=== PATIENT | female | born 1955 | race Caucasian/White ===

== ENCOUNTER 2016-07-10 19:21 | Inpatient (IN) | payer BC ==
[~2016-07-10] VITALS: Ht 154.9 cm; Wt 92.1 kg
[2016-07-10 20:29] LABS: BASO # 0.1 x10^3/uL (0.0-0.2); BASO % 1 % (0-3); EOS % 4 % (0-3); HEMATOCRIT 40.4 % (36.0-47.0); HEMOGLOBIN 13.7 g/dL (12.0-15.5); LYMPH # 2.1 x10^3/uL (1.0-4.8); LYMPH % 27 % (24-48); MEAN CORPUSCULAR HEMOGLOBIN 32 pg (25-35); MEAN CORPUSCULAR HGB CONC 34 g/dL (31-37); MEAN CORPUSCULAR VOLUME 93 fL (79-100); MONO % 5 % (0-9); NEUT % 64 % (31-73); PLATELET COUNT 309 x10^3/uL (140-400); RED BLOOD COUNT 4.34 x10^6/uL (3.50-5.40); RED CELL DISTRIBUTION WIDTH 12.7 % (11.5-14.5); WHITE BLOOD COUNT 7.8 x10^3/uL (4.0-11.0)
[2016-07-10 20:42] LABS: BILIRUBIN,URINE NEGATIVE (NEG); GLUCOSE,URINE NEGATIVE (NEG); NITRITE,URINE NEGATIVE (NEG); PROTEIN,URINE 30 mg/dL (NEG-TRACE); UROBILINOGEN,URINE 0.2 mg/dL (0.2 mg/dL)
[2016-07-10 20:44] LABS: CALCIUM 8.6 mg/dL (8.5-10.1); POTASSIUM 3.5 mmol/L (3.5-5.1)
[2016-07-10 20:53] LABS: RBC,URINE 0 /HPF (0-2)
[2016-07-10 20:54] LABS: BACTERIA,URINE FEW /HPF (0-FEW); SQUAMOUS EPITHELIAL CELL,UR FEW /LPF
--- NOTE | 2016-07-10 21:04 | RAD ---
PROCEDURE Head CT without contrast. HISTORY Seizure-like activity. TECHNIQUE Computed tomographic images the head were obtained without contrast. One or more of the following individualized dose reduction techniques were utilized for this examination: 1. Automated exposure control; 2. Adjustment of the mA and/or kV according to patient size; 3. Use of iterative reconstruction technique. COMPARISON None. FINDINGS No hemorrhage is seen. There is no mass effect or midline shift. There is no hydrocephalus. The weldon and white matter differentiation pattern is intact. The orbits and visualized paranasal sinuses are unremarkable. There are right mastoidectomy changes. 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 IMPRESSION No acute intracranial finding. Electronically signed by: Bhavana Domínguez (Jul 10, 2016 21:03:05)
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
[2016-07-10] MEDS ORDERED: ACETAMINOPHEN 325 MG TABLET. PO PRN (22:45)
[2016-07-10] MEDS ORDERED: ONDANSETRON PF 4 MG/2 ML VIAL. IV PRN (22:45)
[2016-07-10] MEDS ORDERED: fentaNYL PF VIAL 100 MCG/2 ML VIAL IV PRN (22:45)
--- NOTE | 2016-07-10 23:27 | ACF ---
Admit Criteria Forms Admit Criteria Forms Admit Criteria Forms SEIZURE Clinical Indications for Admission to Inpatient Care (Place 'X' for any and all applicable criteria): Admission is indicated for seizure and ANY ONE of the following(1)(2)(3)(4)(5): [X ]I. Inpatient admission required rather than observation care (Also use Seizure: Observation Care Criteria as appropriate) because of ANY ONE of the following: [ ]a) Altered mental status that is severe or persistent [ ]b) New focal neurologic deficit that is severe or persistent [ ]c) Metabolic disorder (eg, hypoglycemia, hyponatremia) that is severe or persistent [ ]d) Recurrent seizure [ ]e) Outpatient antiseizure regimen cannot be established (eg , patient cannot tolerate medication, initiation requires inpatient care) [ ]f) Need for ongoing intravenous infusion of antiseizure medication [ ]g) Cardiac arrhythmias of immediate concern [ ]h) Cerebral bleeding, hydrocephalus, or vasospasm monitoring (14) [ ]i) Increased intracranial pressure or cerebral edema monitoring (15) [X ]j) Other treatment or monitoring requiring inpatient admission [ ]II. Status epilepticus [A] or repetitive seizures not controlled with emergent treatment (6)(8) [ ]III. Brain disorder (eg, tumor, edema, and hydrocephalus) that requiring monitoring or intervention available only at inpatient level of care. [ ]IV. Brain insult (eg, severe trauma, stroke, drug toxicity, or withdrawal) that requires monitoring or intervention available only at inpatient level of care (10)(11) Extended stay beyond goal length of stay may be needed for (22) [ ]a) Complications of status epilepticus [ ]b) Refractory status epilepticus [ ]c) Etiology-specific therapy for conditions such as CAPTAIN/CHECK AIRMAN infection, head injury,eclampsia, severe metabolic abnormalities, and brain tumor [ ]d) Residual neurologic damage, [ ]e) Initiation of significant change to anticonvulsant treatment [ ]f) Older patients (65 years or older) [ ]g) Patient requiring intubation (eg, to protect airway) The original [facility] content created by [email or web address] has been revised. The portions of the content which have been revised are identified through the use of italic text or in bold, and [facility] [email or web address] has neither reviewed nor approved the modified material. All other unmodified content is copyright [facility]. Please see references footnoted in the original [facility] edition 2016 TIANNA DICKERSON Jul 10, 2016 23:27
[2016-07-10 23:55] VITALS: BP 118/73
[2016-07-11] MEDS ORDERED: METO50TA2 PO (00:47)
[2016-07-11] MEDS ORDERED: LOSA25TA4 PO (00:47)
[2016-07-11] MEDS ORDERED: LEVO75TA PO (00:47)
[2016-07-11] MEDS ORDERED: FISH1CAP PO (00:47)
[2016-07-11] MEDS ORDERED: VITA1CAP5 PO (00:47)
[2016-07-11] MEDS ORDERED: CITA20TA5 PO (00:47)
[2016-07-11] MEDS ORDERED: MONT10TA6 PO (00:47)
[2016-07-11] MEDS ORDERED: ATOR20TA58 PO (00:47)
[2016-07-11 03:54] VITALS: BP 108/49
[2016-07-11] MEDS: IPRATRPIUM/ALBUTEROL 0.5/2.5MG 3 ML NEBU. NEB SCH ×3 (06:09→14:51)
--- NOTE | 2016-07-11 06:10 | EKG ---
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
[2016-07-11 07:12] VITALS: BP 139/77
[2016-07-11] MEDS ORDERED: ONDANSETRON PF 4 MG/2 ML VIAL. IV PRN (07:43)
[2016-07-11] MEDS ORDERED: LORAZEPAM 2 MG/ML VIAL. IV PRN (07:45)
[2016-07-11] MEDS ORDERED: LEVOTHYROXINE 75 MCG TABLET PO SCH (08:00)
[2016-07-11] MEDS ORDERED: OMEGA-3 FATTY ACIDS/FISH OIL 1,000 MG CAPSULE. PO SCH (09:00)
[2016-07-11] MEDS ORDERED: VITAMIN B COMPLEX TABLET. PO SCH (09:00)
[2016-07-11] MEDS ORDERED: METOPROLOL TART IMMED RELEASE 50 MG TABLET. PO SCH (09:00)
[2016-07-11] MEDS ORDERED: CITALOPRAM 20 MG TABLET. PO SCH (09:00)
[2016-07-11] MEDS ORDERED: MONTELUKAST SODIUM 10 MG TABLET. PO SCH (09:00)
[2016-07-11] MEDS ORDERED: LOSARTAN POTASSIUM 25 MG TABLET. PO SCH (09:00)
--- NOTE | 2016-07-11 10:18 | PDOC ---
Provider Note Provider Note 23 hr note done JOb # [id number] Await neuro rounds Transient enceph likely stress related NO new meds Counselling done AMOS VIDAL MD Jul 11, 2016 10:18
[2016-07-11 10:51] VITALS: BP 151/86
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
[2016-07-11 15:11] VITALS: BP 136/76
--- NOTE | 2016-07-11 16:09 | PDOC2 ---
CONSULT Date of Consult Date of Consult DATE: 07/11/16 TIME: 16:07 Reason for Consult Reason for Consult: Possible seizure. History of Present Illness Reason for Visit: This patient is 61-year-old woman who was admitted to the hospital with possible seizure. She reports she has been stressed to her last few days. She has not been sleeping enough at night. She has been taking care of her who has dementia. She reports she feels like she needs to sleep better and take care of herself. She reports she was feeling funny while she was driving in the car and slowly stop the car on the side of the road. Have any tongue biting or loss of bowel or bladder control. She does not have similar spells in the past. She reports she had remote history of seizes when she was in 20s. She had a CT scan done of the brain in the emergency room which did not show any acute process. She reports she does not have similar spells in the past she is not taking any season medication. I discussed with her this episode can be related to the sleep deprivation. She needs to sleep at least 7-8 hours at night were discussed seizure precautions in detail. I recommended no driving until 6 months seizure-free. She would like to get workup as outpatient and I recommended we can get MRI brain with and without contrast to rule out any acute process. She can also get the EEG of the brain to rule out any subclinical seizes as outpatient. Current Problem List Problem List Problems Medical Problems: (1) Seizure Status: Acute Current Medications Current Medications Current Medications Ondansetron HCl (Zofran) 4 mg PRN Q8HRS PRN IV NAUSEA/VOMITING; Start 07/10/16 at 22:45; Stop 07/11/16 at 07:45; Status DC Fentanyl Citrate (Fentanyl 2ml Vial) 50 mcg PRN Q2HR PRN IV PAIN; Start at 22:45; Stop 07/11/16 at 22:44 Acetaminophen (Tylenol) 650 mg PRN Q4HRS PRN PO FEVER; Start 07/10/16 at 22:45 ; Stop 07/11/16 at 22:44 Albuterol/ Ipratropium (Duoneb) 3 ml RTQID NEB Last administered on 07/11/16t 10:59; Start 07/11/16 at 08:00; Stop 07/12/16 at 07:59 Ondansetron HCl (Zofran) 4 mg PRN Q6HRS PRN IV NAUSEA/VOMITING; Start 07/11/16 at 07:43 Lorazepam (Ativan) 2 mg PRN Q4HRS PRN IV ANXIETY / AGITATION; Start 07/11/16 at 07:45 Atorvastatin Calcium (Lipitor) 20 mg QHS PO ; Start 07/11/16 at 21:00 Citalopram Hydrobromide (Celexa) 20 mg BID PO Last administered on 07/11/16 10 :12; Start 07/11/16 at 09:00 Levothyroxine Sodium (Synthroid) 75 mcg DAILYAC PO Last administered on 10:12; Start 07/11/16 at 08:00 Losartan Potassium (Cozaar) 25 mg DAILY PO Last administered on 07/11/16 10:13 ; Start 07/11/16 at 09:00 Metoprolol Tartrate (Lopressor) 50 mg DAILY PO Last administered on 07/11/16 10:15; Start 07/11/16 at 09:00 Montelukast Sodium (Singulair) 10 mg DAILY PO Last administered on 07/11/16 10 :12; Start 07/11/16 at 09:00 Fish Oil (Fish Oil) 1,000 mg DAILY PO Last administered on 07/11/16 10:12; Start 07/11/16 at 09:00 Vitamin B Complex (Dashawn B) 1 tab DAILY PO Last administered on 07/11/16 10:12 ; Start 07/11/16 at 09:00 Active Scripts Active Reported Metoprolol Tartrate 50 Mg Tablet 2 Tab PO DAILY Synthroid (Levothyroxine Sodium) 75 Mcg Tablet 75 Mcg PO DAILYAC Atorvastatin Calcium 20 Mg Tablet 1 Tab PO DAILY Citalopram Hbr (Citalopram Hydrobromide) 20 Mg Tablet 20 Mg PO BID Singulair Tablet (Montelukast Sodium) 10 Mg Tablet 1 Tab PO DAILY Losartan Potassium 25 Mg Tablet 25 Mg PO DAILY B Complex With Vitamin C (Vitamin B Complex & Vit C No.3) 1 Each Capsule 1 Each PO DAILY Fish Oil 1,200 Mg Fish Oil (Fish Oil/Dha/Epa) 1 Each Capsule 1 Each PO DAILY Allergies Allergies: Coded Allergies: No Known Drug Allergies (Unverified , 07/10/16) Physical Exam Physical Exam REVIEW OF SYSTEMS: Constitutional: No malnutrition, weight loss, cachexia. Head: No traumatic brain or head injury. Skin: No edema, or rash. Ear: No infection, tinnitus. Eyes: No vision loss or color blindness. Nose: No bleeding or purulent discharges. Hearing: No hearing decrease. Neck: No injury. Cardiac: HTN, HLD. Pulmonary: No COPD. GI: No GI ulcer, GI bleeding. Urinary/genital: No dysuria, hematuria, incontinence, urinary retention Endocrinologic: Diabetes Mellitus Skeletomuscular: No muscular atrophy, deformity Neurological: see HP. Psychiatric: Denies drug use/abuse. Otherwise, not [id number] review of systems. PHYSICAL EXAMINATION: General appearance is in acute distress. HEENT: Normocephalic and nontraumatic. Eyes, nose, ears, and throat are unremarkable. Neck is supple. No lymphadenopathy. No crepitus. Cardiovascular: S1, S2, regular rate and rhythm. Pulmonary: Clear to auscultation bilaterally. Abdomen: Bowel sounds are positive. Abdomen is soft, nontender, and nondistended. Extremities: No rash, lesions, or edema. No restriction of range of motion NEUROLOGICAL EXAMINATION: Alert Oriented to time, place and person. PERRL. EOMI. CN: no focal findings. Muscle tone: within normal. Muscle strength: 5 DTR: 2 Plantar reflex: Flexor response bilaterally Gait: not examined in bed. Sensory exam: no abnormal findings. No obvious cerebellar signs elicited. Vitals VITALS Vital Signs Date Time Temp Pulse Resp B/P Pulse Ox O2 Delivery O2 Flow Rate FiO2 07/11/16 15:11 98.2 63 18 136/76 97 Room Air 98.2 Labs Labs Laboratory Tests Test 07/10/16 19:38 07/10/16 20:26 07/10/16 21:20 07/11/16 04:50 White Blood Count 7.8x10^3/uL (4.0-11.0) Red Blood Count 4.34x10^6/uL (3.50-5.40) Hemoglobin 13.7g/dL (12.0-15.5) Hematocrit 40.4% (36.0-47.0) Mean Corpuscular Volume 93fL (79-100) Mean Corpuscular Hemoglobin 32pg (25-35) Mean Corpuscular Hemoglobin Concent 34g/dL (31-37) Red Cell Distribution Width 12.7% (11.5-14.5) Platelet Count 309x10^3/uL (140-400) Neutrophils (%) (Auto) 64% (31-73) Lymphocytes (%) (Auto) 27% (24-48) Monocytes (%) (Auto) 5% (0-9) Eosinophils (%) (Auto) 4% (0-3) Basophils (%) (Auto) 1% (0-3) Neutrophils # (Auto) 5.0x10^3uL (1.8-7.7) Lymphocytes # (Auto) 2.1x10^3/uL (1.0-4.8) Monocytes # (Auto) 0.4x10^3/uL (0.0-1.1) Eosinophils # (Auto) 0.3x10^3/uL (0.0-0.7) Basophils # (Auto) 0.1x10^3/uL (0.0-0.2) Sodium Level 139mmol/L (136-145) Potassium Level 3.5mmol/L (3.5-5.1) Chloride Level 103mmol/L (98-107) Carbon Dioxide Level 21mmol/L (21-32) Anion Gap 15 (6-14) Blood Urea Nitrogen 14mg/dL (7-20) Creatinine 1.0mg/dL (0.6-1.0) Estimated GFR (Cockcroft-Gault) 56.0 Glucose Level 154mg/dL (70-99) Calcium Level 8.6mg/dL (8.5-10.1) Troponin I Quantitative 0.018ng/mL (0.000-0.055) 0.037ng/mL (0.000-0.055) [id number]-Type Natriuretic Peptide 123pg/mL (0-124) Urine Collection Type Unknown Urine Color Yellow Urine Clarity Clear Urine pH 5.0 Urine Specific [place] 1.015 Urine Protein 30mg/dL (NEG-TRACE) Urine Glucose (UA) Negativemg/dL (NEG) Urine Ketones (Stick) Negativemg/dL (NEG) Urine Blood Negative (NEG) Urine Nitrite Negative (NEG) Urine Bilirubin Negative (NEG) Urine Urobilinogen Dipstick 0.2mg/dL (0.2 mg/dL) Urine Leukocyte Esterase Moderate (NEG) Urine RBC 0/HPF (0-2) Urine WBC 11-20/HPF (0-4) Urine Squamous Epithelial Cells Few/LPF Urine Bacteria Few/HPF (0-FEW) Urine Mucus Mod/LPF Lactic Acid Level 1.2mmol/L (0.4-2.0) Test 07/11/16 11:30 Troponin I Quantitative 0.056ng/mL (0.000-0.055) Laboratory Tests Test 07/10/16 19:38 07/10/16 20:26 07/10/16 21:20 07/11/16 04:50 White Blood Count 7.8x10^3/uL (4.0-11.0) Red Blood Count 4.34x10^6/uL (3.50-5.40) Hemoglobin 13.7g/dL (12.0-15.5) Hematocrit 40.4% (36.0-47.0) Mean Corpuscular Volume 93fL (79-100) Mean Corpuscular Hemoglobin 32pg (25-35) Mean Corpuscular Hemoglobin Concent 34g/dL (31-37) Red Cell Distribution Width 12.7% (11.5-14.5) Platelet Count 309x10^3/uL (140-400) Neutrophils (%) (Auto) 64% (31-73) Lymphocytes (%) (Auto) 27% (24-48) Monocytes (%) (Auto) 5% (0-9) Eosinophils (%) (Auto) 4% (0-3) Basophils (%) (Auto) 1% (0-3) Neutrophils # (Auto) 5.0x10^3uL (1.8-7.7) Lymphocytes # (Auto) 2.1x10^3/uL (1.0-4.8) Monocytes # (Auto) 0.4x10^3/uL (0.0-1.1) Eosinophils # (Auto) 0.3x10^3/uL (0.0-0.7) Basophils # (Auto) 0.1x10^3/uL (0.0-0.2) Sodium Level 139mmol/L (136-145) Potassium Level 3.5mmol/L (3.5-5.1) Chloride Level 103mmol/L (98-107) Carbon Dioxide Level 21mmol/L (21-32) Anion Gap 15 (6-14) Blood Urea Nitrogen 14mg/dL (7-20) Creatinine 1.0mg/dL (0.6-1.0) Estimated GFR (Cockcroft-Gault) 56.0 Glucose Level 154mg/dL (70-99) Calcium Level 8.6mg/dL (8.5-10.1) Troponin I Quantitative 0.018ng/mL (0.000-0.055) 0.037ng/mL (0.000-0.055) [id number]-Type Natriuretic Peptide 123pg/mL (0-124) Urine Collection Type Unknown Urine Color Yellow Urine Clarity Clear Urine pH 5.0 Urine Specific [place] 1.015 Urine Protein 30mg/dL (NEG-TRACE) Urine Glucose (UA) Negativemg/dL (NEG) Urine Ketones (Stick) Negativemg/dL (NEG) Urine Blood Negative (NEG) Urine Nitrite Negative (NEG) Urine Bilirubin Negative (NEG) Urine Urobilinogen Dipstick 0.2mg/dL (0.2 mg/dL) Urine Leukocyte Esterase Moderate (NEG) Urine RBC 0/HPF (0-2) Urine WBC 11-20/HPF (0-4) Urine Squamous Epithelial Cells Few/LPF Urine Bacteria Few/HPF (0-FEW) Urine Mucus Mod/LPF Lactic Acid Level 1.2mmol/L (0.4-2.0) Test 07/11/16 11:30 Troponin I Quantitative 0.056ng/mL (0.000-0.055) Assessment/Plan Assessment/Plan This patient is 61-year-old woman who was admitted to the hospital with possible seizure. She reports she has been stressed to her last few days. She has not been sleeping enough at night. She has been taking care of her who has dementia. She reports she feels like she needs to sleep better and take care of herself. She reports she was feeling funny while she was driving in the car and slowly stop the car on the side of the road. Have any tongue biting or loss of bowel or bladder control. She does not have similar spells in the past. She reports she had remote history of seizes when she was in 20s. She had a CT scan done of the brain in the emergency room which did not show any acute process. She reports she does not have similar spells in the past she is not taking any season medication. I discussed with her this episode can be related to the sleep deprivation. She needs to sleep at least 7-8 hours at night were discussed seizure precautions in detail. I recommended no driving until 6 months seizure-free. She would like to get workup as outpatient and I recommended we can get MRI brain with and without contrast to rule out any acute process. She can also get the EEG of the brain to rule out any subclinical seizes as outpatient. History of hypertension, hypothyroidism continue treat and monitor Syncope workup Follow-up in neurology clinic in 1-2 months. ANJEL WHITE MD Jul 11, 2016 16:08
[2016-07-11] MEDS ORDERED: ATORVASTATIN CALCIUM 20 MG TABLET PO SCH (21:00)
== END 2016-07-11 16:27 | disposition home or self-care (01) | DRG 72 ==
LOC: ER 19:21 → 6 SOUTH 22:11
PROVIDERS: ADMIT Internal Medicine; ATTEND Internal Medicine
DX: G93.40 Encephalopathy, unspecified (principal); E66.9 Obesity, unspecified; E03.9 Hypothyroidism, unspecified; E78.00 Pure hypercholesterolemia, unspecified; E78.5 Hyperlipidemia, unspecified; J45.909 Unspecified asthma, uncomplicated; I10 Essential (primary) hypertension; R56.9 Unspecified convulsions; R32 Unspecified urinary incontinence; Z90.49 Acquired absence of other specified parts of digestive tract; Z68.38 Body mass index [BMI] 38.0-38.9, adult; Z73.3 Stress, not elsewhere classified
CPT/HCPCS: 36415; 70450; 80048; 81001; 83605; 83880; 84484; 85027; 87086; 93005; 94250; 94640; J7620; 99285-25